=== PATIENT | female | born 1995 | race Caucasian/White ===

== ENCOUNTER 2017-06-22 03:35 | Emergency (ER) | payer OTHER ==
[~2017-06-22] VITALS: Ht 154.9 cm; Wt 84.0 kg
[2017-06-22 05:14] VITALS: BP 130/77
== END 2017-06-22 05:14 | disposition left against medical advice (07) ==
LOC: TRA 03:35 → EME 03:35 → TRA 05:14
DX: S00.03XA Contusion of scalp, initial encounter (principal); S30.811A Abrasion of abdominal wall, initial encounter; S60.512A Abrasion of left hand, initial encounter; S60.511A Abrasion of right hand, initial encounter; M25.552 Pain in left hip; V48.9XXA Unspecified car occupant injured in noncollision transport accident in traffic accident, initial encounter; F17.200 Nicotine dependence, unspecified, uncomplicated; Z53.20 Procedure and treatment not carried out because of patient's decision for unspecified reasons
CPT/HCPCS: 70450; 99281; 99284